=== PATIENT | female | born 1975 | race Two or more races ===

== ENCOUNTER 2016-09-16 13:36 | Inpatient (IN) | payer BC ==
[~2016-09-16] VITALS: Ht 167.6 cm; Wt 95.0 kg
[~2016-09-16 13:36] MED LIST: AUGMENTIN875 MG PO; ERGOCALCIF50000 UNIT PO; IBUPROFEN400 MG PO; MICROGESTIN1 EAC1 PO; MOTRIN600 MG PO; NORCO 5/3251 TABLET PO; PREDNISONE10 MG PO; XYZAL5 MG PO
[2016-09-16 15:17] LABS: HEMATOCRIT 41.2 % (36.0-46.0); MCH 28.5 PG (29.0-34.0); MCHC 34.2 G/DL (30.0-36.0); MCV 83.2 FL (83-99); MEAN PLAT.VOLUME 9.7 uM^3 (9.5-12.4); PLATELET COUNT 290 K/uL (156-360); RBC DIS.WIDTH-CV 12.7 % (11.8-14.6); RBC DIS.WIDTH-SD 38.1 % (39-53); RED BLOOD COUNT 4.95 M/uL (3.80-5.20); WHITE BLOOD COUNT 5.8 K/uL (4.1-10.2)
[2016-09-16 15:28] LABS: CHLORIDE 103 mEq/L (99-109)
[2016-09-16 15:29] LABS: POTASSIUM 4.1 mEq/L (3.7-5.4); SODIUM 138 mEq/L (136-147)
[2016-09-16 15:30] LABS: GLUCOSE 113 mg/dL (70-99)
[2016-09-16 15:32] LABS: ANION GAP 10 MEQ/L (2-14)
[2016-09-16 15:34] LABS: GFR ESTIMATE (CALCULATED) 52 mL/min/
[2016-09-16 15:35] LABS: UREA NITROGEN (BUN) 11 mg/dL (9-23)
[2016-09-16] MEDS ORDERED: MOMETASONE FURO45 GM TP (19:56)
[2016-09-16] MEDS ORDERED: JUNEL FE 1/21 TABLET PO (19:56)
[2016-09-16] MEDS ORDERED: EPIPEN ADU0.3 MG/0.3 IM (19:57)
[2016-09-16] MEDS ORDERED: HAIR, SKIN & N1 EAC1 PO (19:58)
[2016-09-16] MEDS ORDERED: IRON18 MG PO (19:58)
[2016-09-16] MEDS ORDERED: PROAIR HFA8.5 GM IH (19:59)
[2016-09-16 20:10] LABS: PROTHROMBIN TIME 10.3 (9.2-11.2); PTT 27.3 (25-32)
[2016-09-16 20:19] LABS: QUANTITATIVE HCG < 4.0 MIU/ML
[2016-09-16 21:43] LABS: HDL CHOLESTEROL 59 MG/DL (Desirable>=50); LDL CHOLESTEROL 125 mg/dL (Desirable<100); NON-HDL CHOLESTEROL 146 mg/dL (Desirable<160); TOTAL CHOLESTEROL 205 mg/dL (Desirable<200); TRIGLYCERIDES 106 MG/DL (Normal: <150)
[2016-09-17 06:13] LABS: HEMATOCRIT 35.3 % (36.0-46.0); MCH 28.8 PG (29.0-34.0); MCHC 35.1 G/DL (30.0-36.0); MCV 82.1 FL (83-99); MEAN PLAT.VOLUME 9.6 uM^3 (9.5-12.4); PLATELET COUNT 246 K/uL (156-360); RBC DIS.WIDTH-CV 12.9 % (11.8-14.6); RBC DIS.WIDTH-SD 37.2 % (39-53); WHITE BLOOD COUNT 4.5 K/uL (4.1-10.2)
[2016-09-17 06:23] LABS: CHLORIDE 109 mEq/L (99-109); POTASSIUM 4.1 mEq/L (3.7-5.4); SODIUM 139 mEq/L (136-147)
[2016-09-17 06:25] LABS: GLUCOSE 106 mg/dL (70-99)
[2016-09-17 06:27] LABS: ANION GAP 7 MEQ/L (2-14); TOTAL BILIRUBIN 0.5 mg/dL (0.0-1.0)
[2016-09-17 06:29] LABS: ALKALINE PHOSPHATASE 64 IU/L (3-129); GFR ESTIMATE (CALCULATED) > 59 mL/min/
[2016-09-17 06:30] LABS: UREA NITROGEN (BUN) 13 mg/dL (9-23)
[2016-09-17 08:46] VITALS: BP 155/100
[2016-09-17 14:59] LABS: ADD MIUA? YES; BILIRUBIN NEGATIVE; BLOOD SMALL; COLOR YELLOW ((YELLOW)); GLUCOSE (STRIP) NEGATIVE; KETONES NEGATIVE; LEUKOCYTES NEGATIVE; NITRITE POSITIVE; PROTEIN (STRIP) NEGATIVE; UROBILINOGEN 0.2 MG/DL (0.2-1.0)
[2016-09-17 15:04] LABS: BACTERIA RARE /HPF; EPITHELIAL CELLS RARE /HPF; MUCUS TRACE /LPF; RED BLOOD CELLS 0-5 /HPF (0-5); UCUL ADDED? NO
[2016-09-17 15:09] VITALS: BP 134/112
[2016-09-17 15:11] VITALS: BP 144/100
[2016-09-17 16:14] VITALS: BP 141/93
[2016-09-17 20:34] VITALS: BP 130/80
[2016-09-18 00:01] VITALS: BP 145/95
[2016-09-18 04:10] VITALS: BP 147/73
[2016-09-18 07:49] LABS: Estimated Average Glucose 111 mg/dL (70-123); HEMOGLOBIN A1c (GLYCOHEMOGLOB) 5.5 % HGB (Below 5.7)
[2016-09-18 08:06] VITALS: BP 133/84
[2016-09-18 09:09] LABS: EOSINOPHIL (%) 8.2 % (0-5); EOSINOPHIL COUNT 0.2 K/uL (0-0.3); HEMATOCRIT 36.4 % (36.0-46.0); IMMATURE GRANULOCYTE (%) 0.4 % (0.0-0.7); LYMPHOCYTE COUNT 1.4 K/uL (1.0-2.8); MCHC 33.2 G/DL (30.0-36.0); MCV 84.3 FL (83-99); MEAN PLAT.VOLUME 9.6 uM^3 (9.5-12.4); MONOCYTE (%) 8.9 % (3-12); MONOCYTE COUNT 0.3 K/uL (0-0.8); NEUTROPHIL (%) 33.4 % (45-76); NEUTROPHIL COUNT 0.9 K/uL (1.8-6.4); PLATELET COUNT 224 K/uL (156-360); RBC DIS.WIDTH-CV 12.8 % (11.8-14.6); RBC DIS.WIDTH-SD 39.4 % (39-53); RED BLOOD COUNT 4.32 M/uL (3.80-5.20); WHITE BLOOD COUNT 2.8 K/uL (4.1-10.2)
[2016-09-18 09:21] LABS: ALKALINE PHOSPHATASE 53 IU/L (3-129); ANION GAP 8 MEQ/L (2-14); CHLORIDE 106 MEQ/L (99-109); GFR ESTIMATE (CALCULATED) > 59 mL/min/; GLUCOSE 90 mg/dL (70-99); POTASSIUM 4.2 MEQ/L (3.7-5.4); SAMPLE HEMOLYSIS CHECK 0; SAMPLE ICTERIC CHECK 0; SAMPLE LIPEMIA CHECK 0; SODIUM 138 MEQ/L (136-147); TOTAL BILIRUBIN 0.4 MG/DL (0.0-1.0); UREA NITROGEN (BUN) 10 mg/dL (9-23)
[2016-09-18 16:09] VITALS: BP 165/89
[2016-09-18 21:40] LABS: PTT-LA 34 sec (<=40)
[2016-09-18 22:07] LABS: DRVVT 1:1 Mix Immediate CORRECTED sec (CORRECTED); LUPA PHOSPHOLIPID NEUTRALIZ Positive (Negative)
[2016-09-19] VITALS: BP 129/71
[2016-09-19 04:01] VITALS: BP 134/81
[2016-09-19 07:24] VITALS: BP 125/72
[2016-09-19 11:29] LABS: HEMATOCRIT 37.4 % (36.0-46.0); MCHC 35.6 G/DL (30.0-36.0); MCV 84.4 FL (83-99); MEAN PLAT.VOLUME 9.9 uM^3 (9.5-12.4); PLATELET COUNT 259 K/uL (156-360); RBC DIS.WIDTH-CV 12.6 % (11.8-14.6); RBC DIS.WIDTH-SD 38.7 % (39-53); RED BLOOD COUNT 4.43 M/uL (3.80-5.20)
[2016-09-19 11:32] LABS: WHITE BLOOD COUNT 4.8 K/uL (4.1-10.2)
[2016-09-19 11:46] LABS: ANION GAP 11 MEQ/L (2-14); CHLORIDE 102 MEQ/L (99-109); GFR ESTIMATE (CALCULATED) > 59 mL/min/; POTASSIUM 4.2 MEQ/L (3.7-5.4); SAMPLE HEMOLYSIS CHECK 0; SAMPLE ICTERIC CHECK 0; SAMPLE LIPEMIA CHECK 0; SODIUM 135 MEQ/L (136-147); UREA NITROGEN (BUN) 9 mg/dL (9-23)
[2016-09-19 11:47] LABS: GLUCOSE 196 mg/dL (70-99)
[2016-09-19 16:34] VITALS: BP 137/82
[2016-09-19 20:20] VITALS: BP 159/98
[2016-09-20 00:01] VITALS: BP 132/70
[2016-09-20 07:31] VITALS: BP 121/67
[2016-09-20 15:03] VITALS: BP 123/69
[2016-09-21 00:04] VITALS: BP 129/75
[2016-09-21 07:27] LABS: ANION GAP 6 MEQ/L (2-14); CHLORIDE 105 MEQ/L (99-109); GFR ESTIMATE (CALCULATED) > 59 mL/min/; POTASSIUM 4.2 MEQ/L (3.7-5.4); SAMPLE HEMOLYSIS CHECK 0; SAMPLE ICTERIC CHECK 0; SAMPLE LIPEMIA CHECK 0; SODIUM 140 MEQ/L (136-147); UREA NITROGEN (BUN) 14 mg/dL (9-23)
[2016-09-21 07:29] VITALS: BP 141/77
[2016-09-21 07:31] LABS: MCH 27.9 PG (29.0-34.0); MCHC 33.1 G/DL (30.0-36.0); MCV 84.3 FL (83-99); MEAN PLAT.VOLUME 9.7 uM^3 (9.5-12.4); PLATELET COUNT 245 K/uL (156-360); RBC DIS.WIDTH-CV 12.9 % (11.8-14.6); RBC DIS.WIDTH-SD 39.1 % (39-53); RED BLOOD COUNT 4.27 M/uL (3.80-5.20); WHITE BLOOD COUNT 7.2 K/uL (4.1-10.2)
[2016-09-21 07:33] LABS: GLUCOSE 86 mg/dL (70-99)
[2016-09-21 15:53] VITALS: BP 144/72
[2016-09-21 23:44] VITALS: BP 141/79
[2016-09-22 07:53] VITALS: BP 137/77
[2016-09-22] MEDS ORDERED: METHYLPREDNISOLO4 MG PO (11:06)
[2016-09-22] MEDS ORDERED: LISINOPRIL5 MG PO (11:26)
[2016-09-22] MEDS ORDERED: SIMVASTATIN10 MG PO (12:54)
[2016-09-23 19:32] LABS: PROTEIN C FUNCTIONAL ACTIVITY+ 110 % (70-180); Protein S, Free 90 % normal (50-147); Thrombosis Consult Level Limited (())
[2016-09-23 22:21] LABS: ANTITHROMBIN III ACTIVITY+ 100 % activi (80-120)
[2016-09-24 12:26] LABS: dRVVT Screen 47 (H)
== END 2016-09-22 13:15 | disposition home or self-care (01) | DRG 103 ==
LOC: EME 13:36 → 5SOUTH 20:57 → EDOF 20:57 → 5SOUTH 09-17 15:59
PROVIDERS: Hospitalist; Internal Medicine; Physician Assistant; Psychiatry & Neurology Neurology
DX: G43.119 Migraine with aura, intractable, without status migrainosus (principal); G81.91 Hemiplegia, unspecified affecting right dominant side; N39.0 Urinary tract infection, site not specified; H53.2 Diplopia; B96.20 Unspecified Escherichia coli [E. coli] as the cause of diseases classified elsewhere; T78.3XXA Angioneurotic edema, initial encounter; T50.8X5A Adverse effect of diagnostic agents, initial encounter; R11.2 Nausea with vomiting, unspecified; J45.909 Unspecified asthma, uncomplicated; I10 Essential (primary) hypertension; E78.5 Hyperlipidemia, unspecified; E66.9 Obesity, unspecified; Z68.33 Body mass index [BMI] 33.0-33.9, adult; Z88.1 Allergy status to other antibiotic agents; Z88.5 Allergy status to narcotic agent; Z91.040 Latex allergy status
CPT/HCPCS: 70450; 70496; 70551; 71020; 80048; 80053; 80061; 81003; 81240 90; 83036; 83090 90; 84702; 85025; 85027; 85240 90; 85300 90; 85303 90; 85305 90; 85306 90; 85307 90; 85610; 85613 90; 85651; 85730; 85730 90; 86140; 86146 90; 86147 90; 87077; 87086; 87186; 93005; 93306; 93880; 94640; 94640 76; 99202; 99281; 99285; J0696; J1200; J1644; J1650; J1885; J2405; J2920; J2930; J7030; J7050; J7120; J7509; J7512; Q0169